=== PATIENT | female | born 1950 | race Caucasian/White ===

== ENCOUNTER 2023-10-29 11:53 | Inpatient (IN) | payer MEDICARE, OTHER ==
[2023-10-29] MEDS ORDERED: Acetaminophen 500 MG Tab PO PRN (15:36)
[2023-10-29] MEDS: Pantoprazole 40 MG Tab.CR PO SCH (17:12)
[2023-10-29] MEDS: Sucralfate 1 GM Tab PO SCH (17:12)
[2023-10-29] MEDS: diphenhydrAMINE 25 MG Cap PO PRN (17:30)
[2023-10-29] MEDS: LORazepam 0.5 MG Tab PO PRN (18:17)
[2023-10-29] MEDS: Polyethylene Glycol 3350 Powder 17 GM Packet PO PRN (18:58)
[2023-10-29] MEDS: guaiFENesin 600 MG Tab.ER PO SCH (20:09)
[2023-10-29] MEDS: rOPINIRole 1 MG Tab PO SCH (20:09)
[2023-10-29] MEDS: Calcium Carbonate 500 MG Tablet PO SCH (20:09)
[2023-10-29] MEDS: Midodrine 5 MG Tab PO SCH (20:09)
[2023-10-29] MEDS: Gabapentin 300 MG Cap PO SCH (20:09)
[2023-10-29] MEDS: atorvaSTATin 20 MG Tab PO SCH (20:10)
[2023-10-29] MEDS: Apixaban 2.5 MG Tab PO SCH (20:10)
[2023-10-29] MEDS: Loratadine 10 MG Tab PO SCH (20:10)
[2023-10-29] MEDS: Montelukast 10 MG Tab PO SCH (20:11)
[2023-10-29] MEDS: Melatonin 3 MG Tab PO PRN (21:06)
[2023-10-30] MEDS: Spironolactone 25 MG Tab PO SCH (08:56)
[2023-10-30] MEDS: Formoterol/Mometasone 200-5 MCG 8.8 GM Inhaler IH SCH (08:57)
[2023-10-30] MEDS: Ferrous Sulfate 325 MG Tab PO SCH (08:58)
[2023-10-30] MEDS: Potassium Chloride 20 MEQ Tab.ER PO SCH (08:59)
[2023-10-30] MEDS: Digoxin 250 MCG Tab PO SCH (08:59)
[2023-10-30] MEDS: Escitalopram 20 MG Tab PO SCH (08:59)
[2023-10-30] MEDS: Folic Acid 0.8 MG Tab PO SCH (08:59)
[2023-10-30] MEDS: Furosemide 40 MG Tab PO SCH (08:59)
[2023-10-30] MEDS: Tiotropium Bromide 4 GM Inhalation Spray (2.5mcg/1 dose; 10 doses) INH SCH (09:00)
[2023-10-30] MEDS: Cyanocobalamin (Vitamin B12) 500 MCG Tab PO SCH (09:01)
[2023-10-30] MEDS: Multivitamins with Iron/Calcium/Folic Acid/Minerals Tab PO SCH (09:01)
[2023-10-30] MEDS: Cholecalciferol (Vitamin D3) 25 MCG Tab PO SCH (09:01)
[2023-10-30] MEDS: Roflumilast 500 MCG Tab PO SCH (09:41)
[2023-10-30] MEDS: Albuterol/Ipratropium 3.0-0.5 MG/3 ML Neb Soln NEB PRN (10:49)
[2023-10-30] MEDS: Acetaminophen 325 MG Tab PO PRN (20:26)
[2023-10-31] MEDS: predniSONE 20 MG Tab PO SCH (09:37)
[2023-10-31] MEDS: Albuterol 6.7 GM Inhaler INH PRN (14:54)
[2023-11-01 06:12] LABS: BASOPHILS PERCENT AUTO 0.3 % (0.2-1.5); EOSINOPHILS PERCENT AUTO 0.5 % (0.6-8.1); HEMATOCRIT 26.1 % (34.2-48.2); HEMOGLOBIN 8.5 g/dL (11.4-15.5); LYMPHOCYTES ABSOLUTE AUTO 0.4 x10-3/uL (1.0-4.4); LYMPHOCYTES PERCENT AUTO 9.1 % (18.4-52.1); MEAN CORPUSCULAR HEMOGLOBIN 31.2 pg (23.9-33.9); MEAN CORPUSCULAR HGB CONC 32.5 g/dL (31.9-34.8); MEAN CORPUSCULAR VOLUME 96.1 fL (76.7-100.5); MEAN PLATELET VOLUME 6.9 fL (7.1-12.4); MONOCYTES ABSOLUTE AUTO 0.2 x10-3/uL (0.3-1.0); MONOCYTES PERCENT AUTO 4.9 % (4.4-15.7); NEUTROPHILS ABSOLUTE AUTO 3.8 x10-3/uL (1.5-6.3); NEUTROPHILS PERCENT AUTO 85.2 % (30.8-76.2); PLATELET COUNT,PLT 298 x10(3)uL (151-488); RED BLOOD CELL COUNT 2.72 x10(6)uL (3.60-5.20); RED CELL DISTRIBUTION WIDTH 21.4 % (12.3-16.5); WHITE BLOOD CELL COUNT,WBC 4.4 x10-3/uL (3.0-10.3)
[2023-11-01 06:16] LABS: BLOOD UREA NITROGEN,BUN 15 mg/dL (7-18); BUN/CREATININE RATIO 16.7 (9-20); CALCIUM 8.8 mg/dL (8.6-10.2); CARBON DIOXIDE,CO2 33 mmol/L (21-32); CHLORIDE,CL 103 mmol/L (100-110); CREATININE 0.9 mg/dL (0.55-1.02); EST CRCL DRUG DOSING (CG) 38.79 mL/min; ESTIMATED GFR 67 mL/min (>60); GLUCOSE RANDOM 136 mg/dL (80-116); POTASSIUM,K 3.9 mmol/L (3.5-5.3); SODIUM,NA 141 mmol/L (135-145)
== END 2023-11-03 12:05 | disposition home health service (06) | DRG 948 ==
LOC: FB.MS 14:34
PROVIDERS: ADMIT Family Medicine; ATTEND Family Medicine
DX: R53.81 Other malaise (principal); J96.11 Chronic respiratory failure with hypoxia; R53.1 Weakness; J43.9 Emphysema, unspecified; J44.9 Chronic obstructive pulmonary disease, unspecified; I48.0 Paroxysmal atrial fibrillation; D50.9 Iron deficiency anemia, unspecified; L29.9 Pruritus, unspecified; Z99.81 Dependence on supplemental oxygen; Z98.890 Other specified postprocedural states; Z79.51 Long term (current) use of inhaled steroids; Z79.899 Other long term (current) drug therapy; Z79.01 Long term (current) use of anticoagulants; Z87.19 Personal history of other diseases of the digestive system; Z85.118 Personal history of other malignant neoplasm of bronchus and lung
CPT/HCPCS: 36415; 80048; 85025; 94640; 97110-GO; 97161-GP; 97165-GO; 97530-GO; 97530-GP; 97535-GO; A9270-GY; J7512; J7620